=== PATIENT | male | born 2000 | race Caucasian/White ===

== ENCOUNTER 2023-09-19 12:09 | Emergency (ER) | payer MEDICAID ==
[~2023-09-19] VITALS: Ht 170.2 cm; Wt 76.7 kg
[2023-09-19 12:25] VITALS: BP 138/83; PULSE 74; RESP 20; TEMP 98.7; O2SAT 96
[2023-09-19 12:46] VITALS: BP 138/83; PULSE 74; RESP 20; TEMP 98.7; O2SAT 96
== END 2023-09-19 12:46 | disposition home or self-care (01) ==
LOC: MED 12:09
DX: F41.0 Panic disorder [episodic paroxysmal anxiety] (principal); R03.0 Elevated blood-pressure reading, without diagnosis of hypertension
CPT/HCPCS: 99281